=== PATIENT | female | born 1955 | race Caucasian/White ===

== ENCOUNTER 2021-02-03 07:10 | Day surgery (SDC) | payer MEDICARE, BC ==
--- OUTSIDE RECORDS SUMMARY | 2021-01-13 08:36 | XMSREPORT | Referral Summary ---
:1955 Author Organization [facility] and [facility] s Address [facility] [place] [address] Care Team Providers Name Role Phone Lanie Brito [facility] Primary Care Provider Lanie Brito [facility]IRE [facility] Attributed Provider Reason for Referral Transitions of Care (Routine) Status Reason Specialty Diagnoses / Referred By Referred To Procedures Contact Contact New Request Patient Diagnoses Screening for colon cancer Hallie Brito [facility], [facility], [address] [place] [place] [address] [address] [place], [place] Phone: [phone] Phone: Encounter Details Date Type Department Care Team Description 12/31/2020 Patient Message [facility] Hallie Brito [facility] [address] [place] [address] [place] [address] [phone] Allergies No Known Active Allergiesdocumented as of this encounter (statuses as of 01/01/2021) Medications Medication Sig Dispensed Refills Start Date End Date Status aspirin 81 MG tablet Take 81 mg by 0 Active mouth 1 time per day. vitamin D3, Take 2,000 Units 0 A ctive cholecalciferol, 2000 by mouth 1 time unit tablet per day. potassium gluconate Take 550 mg by 0 Active 550 MG TABS mouth 1 time per day. calcium Take 1 tablet by 0 Act jose rafael citrate-vitamin D mouth 2 times a (CITRACAL + VIT D) 315 day with meals mg-250 unit tablet mupirocin (BACTROBAN) Apply topically 3 15 g 0 10/03/2018 Active 2 % creamIndications: times a day Folliculitis cyanocobalamin Take 5,000 mcg by 0 Active (VITAMIN B-12) 1000 mouth 1 time per mcg tablet day clobetasol propionate Apply to affected 60 g 1 02/25/2020 Active (TEMOVATE) 0.05 % areas on leg two ointmentIndications: times a day for 2 Dermatitis weeks than every other day for 2 weeks. acetaminophen Take 2 tablets 60 tablet 0 03/26/2020 Active (TYLENOL) 500 mg (1,000 mg) by tabletIndications: S/P mouth 3 times a left knee arthroscopy day triamcinolone (KENALOG Place 1 5 g 3 04/12/2020 Active IN ORABASE) 0.1 % application into pasteIndications: mouth 2 times a Aphthous ulcer of day tongue Additional Information Patient taking differently: 1 application Mouth/Throat Two times a day prn, Reported on 12/03/2020 omeprazole (PRILOSEC) 20 mg TAKE 1 CAPSULE BY 90 capsule 4 Active capsuleIndications: MOUTH EVERY DAY Gastroesophageal reflux disease without esophagitis rosuvastatin (CRESTOR) 10 mg TAKE 1 TABLET BY 90 tablet 4 10/17 Active tabletIndications: MOUTH EVERY NIGHT AT Hypercholesterolemia BEDTIME escitalopram (LEXAPRO) 10 mg TAKE 1 TABLET BY 90 tablet 4 10/17 Active tabletIndications: Depression MOUTH EVERY DAY with anxiety hydroCHLOROthiazide 25 mg TAKE 1 TABLET BY 90 tablet 4 021 Active tabletIndications: Hypertension, MOUTH EVERY MORNING benign essential, goal below FOR HIGH BLOOD 140/90 PRESSURE lisinopril (PRINIVIL, ZESTRIL) TAKE 1 TABLET BY 90 tablet 4 Active 10 mg tabletIndications: MOUTH EVERY NIGHT AT Hypertension, benign essential, BEDTIME goal below 140/90 Calcium 200 MG TABS Take 1 tablet by 0 Active mouth 1 time per day at noon doxepin (SILENOR) 6 MG Take 1 tablet (6 mg) 30 tablet 1 2020 Active tabletIndications: Other by mouth at bedtime insomnia as needed for insomnia Probiotic Product (CULTURELLE Take 2 gummy by 0 Active IMMUNE DEFENSE) CHEW mouth 1 time per day naproxen (ALEVE) 220 mg tablet Take 440 mg by mouth 0 Active 2 times a day as needed for mild pain Hwkimozjlxg-Izjjdolqe-Kja C-Mn Take 2 capsules by 0 Active (GLUCOSAMINE-CHONDROITIN mouth 1 time per day COMPLEX) capsule diphenhydrAMINE (BENADRYL) 25 mg Take 25 mg by mouth 0 Active capsule at bedtime as needed for other (Specify) (allergies) Hospital, Clinic, or Other Ordered Dose Route Frequency Start Date End Date Status Facility Administered Medication lidocaine 1% injection 0.5 mL IA Now 05/18/2020 Active solution 0.5 mLIndications: Trigger finger, right ring finger, Trigger finger, right index finger documented as of this encounter (statuses as of 01/01/2021) Active Problems Problem Noted Date Generalized abdominal pain 11/15/2018 Overview: Associated with alternating constipation /diarrhea Xray with moderate constipation. Miralax cleanout regimen recommended. Atrophic vaginitis 09/13/2018 Overview: August 2018-trial replens. 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 Obesity (BMI 30-39.9) 07/27/2014 Insomnia 06/12/2013 Overview: S/e from Amitriptyline, trazodone. Minip ress ineffective. Nov 2020: trial doxepin. Last Assessment & Plan: -Uses trazodone as needed. Vitamin D deficiency 08/19/2009 Osteopenia 02/18/2007 Overview: Vitamin D and calcium supplements. 2013 Dexa: major osteoporotic fracture of 7.4%, for hip fracture 0.6%. Lumbar Tscore -1.6; Femoral neck Tscore -1.6. 2020: FRAX major fracture is 10% and hip fracture is 1.4%. Lumbar Tscore -2.0; Femoral neck Tscore -1.9. Esophageal reflux 02/13/2007 Overview: with a large hiatal hernia. upper GI in 2006. She underwent an EGD March of 2007. August 2018--trial off ppi, switch to h2 receptor gautam. Did not tolerate, restarted PPI. Last Assessment & Plan: -on omeprazole Hypertension, benign essential, goal below 140/90 03/19 Overview: Lisinopril and hctz daily. Last Assessment & Plan: -on medications and stable. Hypercholesterolemia Overview: Simvastatin 20 mg. 10 year ASCVD risk 2. 1%. September 2019: change simvastatin to crestor for better control. Last Assessment & Plan: -on statin Postmenopausal Overview: Hot flashes. documented as of this encounter (statuses as of 01/01/2021) Resolved Problems Problem Noted Date Resolved Date Rash 12/25/2017 03/10/2020 Essential hypertension 08/18/2016 07/27/2017 Hematoma 11/27/2009 07/27/2014 Pelvic pain in female 08/13/2009 07/27/2014 Carpal tunnel syndrome 04/14/2008 07/27/2014 Trigger finger, acquired 04/14/2008 07/27/2014 Acute esophagitis 04/10/2007 07/27/2014 documented as of this encounter (statuses as of 01/01/2021) Immunizations Name Administration Dates Next Due FLU VACCINE HIGH DOSE 65YR+(Fluzone) 12/09/2019 FLU VACCINE SINGLE DOSE 05/26/2019 0.5mL(6MO+Fluzone/Flulaval/Fluarix,3YR+Afluria) INFLUENZA HIGH DOSE (FLUZONE) 65 YEARS AND UP 12/03/2020 Moderna COVID-19 Vaccine 06/09/2020, 05/12/2020 Pfizer COVID-19 Vaccine 12/03/2020 Pneumococcal Polysaccharide PPSV23 01/13/2020 TDAP 10/17/2019, 08/27/2009 Tetanus Toxoid,not adsorbed 03/19/1999 Zoster Live(Zostavax) 02/09/2015, 03/19/1999 Zoster Recombinant (Shingrix) 03/13/2018, 10/05/2017 documented as of this encounter Social History Tobacco Use Types Packs/Day Years Used Date Never Smoker Smokeless Tobacco: Never Used Alcohol Use Standard Drinks/Week Comments Yes 0 (1 standard drink = 0.6 oz pure alcoho l) Socially, 0-1 per week Alcohol Habits Answer Date Recorded How often do you have a drink containing Not asked alcohol? How many drinks containing alcohol do you have Not asked on a typical day when you are drinking? How often do you have six or more drinks on Not asked one occasion? Comment: Socially, 0-1 per week 08/23/2017 Sex Assigned at Date Recorded Not on file documented as of this encounter Functional Status Functional Status Response Date of Assessment Is the person deaf or does he/she have serious difficulty No 01/18/2018 hearing? Is this person blind or does he/she have difficulty No 01/18/2018 seeing even when wearing glasses? Do you have difficulty with walking, balance, climbing No 12/03/2020 stairs, or had a fall in the last 3 months? documented as of this encounter Miscellaneous Notes Telephone Encounter - Elsy Alvarez LPN - 12/31/2020 4:37 PM CDT From: Tamara Fletcher To: Hallie Brito APRN-STRING STUDIES DIRECTOR Sent: 12/30/2020 8:43 AM CDT Subject: Colonscopy Good morning, I just called and checked on my colonscopy and was told they have over 1999 to schedule in [place]. Could you do a referral to [facility] in [place]? I can do it here and I am guessing might get in earlier. Please advise. Tamara Miranda documented in this encounter Plan of Treatment Date Type Specialty Care Team Description 08/24/2021 Office Visit Dermatology Isidro Perez MD [address] [place] [address] [phone] 12/08/2021 Office Visit Breast Specialty Naren Hurt , [facility]TER[facility]CN[facility] [address] [place] [address] [phone] 12/08/2021 Office Visit Internal Medicine Hallie Brito ae, [employer] C[employer]UD[employer] DIRECT[employer] [address] [place] [address] [phone] Name Type Priority Associated Diagnoses Order [facility] CLINIC REFERRAL Referral Routine Screening for colon Order ed: 01/01/2021 ENDOSCOPY NON ONE CHART cancer documented as of this encounter Goals Goal Patient Goal Associated Recent Patient-Stated? Author Type Problems Progress Blood Pressure Blood Pressure 132/68 No Dion, < 140/90 (12/03/2020 Sona Chester, 1:45 PM CDT) RN documented as of this encounter Visit Diagnoses Diagnosis Screening for colon cancer - Primary Special screening for malignant neoplasm s, colon documented in this encounter
[~2021-02-03 07:10] MED LIST: Lactated Ringers 1,000 ML IV SCH; Sodium Chloride 0.9% 10 ML Syringe FLUSH PRN
[2021-02-03] MEDS ORDERED: Propofol 200 MG/20 ML SDV ONE ×2 (08:23→09:47)
[2021-02-03] MEDS ORDERED: fentaNYL 100 MCG/2 ML SDV ONE (08:23)
--- NOTE | 2021-02-03 11:30 | OR ---
PREOPERATIVE DIAGNOSIS: Screening colonoscopy. The patient's last one was normal about 10 years ago. She does have history of constipation. She denies any family history of colon cancer. POSTOPERATIVE DIAGNOSES: 1. 4 mm polyp at 90 cm, removed using several bites of the cold forceps. 2. Mildly tortuous colon. PROCEDURE: Colonoscopy with polypectomy x1 using cold forceps. SURGEON: Atul Valdez M.D. ANESTHESIA: Monitored anesthesia care. BOWEL PREP: Fair to good. DESCRIPTION OF PROCEDURE: Tamara is a 65-year-old female who was brought to the endoscopy suite after discussing risks and benefits of the procedure. Informed consent was obtained for conscious sedation and colonoscopy with or without biopsy and/or polypectomy. We also discussed possibility of missed lesions. Pre-procedure exam was unremarkable. IV, oxygen, and monitors were placed. The patient was placed in the left lateral decubitus position. Sedation was administered and a digital rectal exam was performed and unremarkable. Colonoscope was passed into the rectum and slowly advanced all the way to the cecum. Cecum was viewed and photographed. The colonoscope was slowly withdrawn and the mucosa was closed observed in a direct circumferential manner. The ascending colon was remarkable for 4 mm polyp at 90 cm, removed using several bites of the cold forceps. Transverse colon unremarkable. Descending colon unremarkable. Sigmoid colon unremarkable. Retroflexion was performed. Rectal mucosa unremarkable. Scope was removed. The patient tolerated the procedure well. The patient was monitored until that baseline status. Discharge instructions were reviewed and the patient was discharged in good condition. COMPLICATIONS: None. TOTAL TIME: 28 minutes. ESTIMATED BLOOD LOSS: About 1 mL. RECOMMENDATIONS/FOLLOWUP: We will await results of path report to determine ideal followup interval. I will have the patient hold her aspirin for 3 days to limit any chance of bleeding from polypectomy site. I would like to kindly thank Hallie Brito for this referral. DMB: 02/03/2021 10:10:04 MODL: 02/03/2021 11:01:30 /[id number]
== END 2021-02-03 12:20 | disposition home or self-care (01) ==
LOC: VM.SDS 07:10
PROVIDERS: ATTEND Family Medicine
DX: Z12.11 Encounter for screening for malignant neoplasm of colon (principal); D12.2 Benign neoplasm of ascending colon; I10 Essential (primary) hypertension; E55.9 Vitamin D deficiency, unspecified; K21.9 Gastro-esophageal reflux disease without esophagitis; G47.00 Insomnia, unspecified; E78.00 Pure hypercholesterolemia, unspecified; F41.8 Other specified anxiety disorders; M85.80 Other specified disorders of bone density and structure, unspecified site; Z98.890 Other specified postprocedural states; Z79.899 Other long term (current) drug therapy; Z79.82 Long term (current) use of aspirin
CPT/HCPCS: 00812; 88305; J2704; J3010; J7120

== ENCOUNTER 2023-03-23 19:59 | Emergency (ER) | payer MEDICARE ==
[2023-03-23] MEDS ORDERED: Sodium Chloride 0.9% 10 ML Syringe FLUSH PRN (20:07)
[2023-03-23] MEDS ORDERED: Aspirin 81 MG Tab.Chew PO ONE (20:08)
[2023-03-23 20:37] LABS: BASOPHILS PERCENT AUTO 0.6 % (0.2-1.2); EOSINOPHILS ABSOLUTE AUTO 0.2 x10^3/uL (0.0-0.5); EOSINOPHILS PERCENT AUTO 3.4 % (0.0-4.0); HEMATOCRIT 38.1 % (33.0-47.0); HEMOGLOBIN 12.6 g/dL (12.0-16.0); IMMATURE GRAN ABSOLUTE AUTO 0.02 x10^3/uL (0.00-0.07); LYMPHOCYTES ABSOLUTE AUTO 2.3 x10^3/uL (1.0-4.8); LYMPHOCYTES PERCENT AUTO 35.6 % (25.0-50.0); MEAN CORPUSCULAR HEMOGLOBIN 28.3 pg (26.0-32.0); MEAN CORPUSCULAR HGB CONC 33.1 g/dL (32.0-36.0); MEAN CORPUSCULAR VOLUME 85.6 fL (78.0-93.0); MONOCYTES ABSOLUTE AUTO 0.4 x10^3/uL (0.0-0.8); NEUTROPHILS ABSOLUTE AUTO 3.5 x10^3/uL (1.8-7.7); NEUTROPHILS PERCENT AUTO 54.1 % (50.0-80.0); PLATELET COUNT,PLT 334 x10^3/uL (130-400); RED BLOOD CELL COUNT 4.45 x10^6/uL (4.00-5.50); WHITE BLOOD CELL COUNT,WBC 6.4 x10^3/uL (4.0-10.0)
[2023-03-23 21:01] LABS: LACTIC ACID 0.9 mmol/L (0.4-2.0)
[2023-03-23 21:05] LABS: INR 0.9 (0.9-1.1); PROTHROMBIN TIME 10.2 SEC (9.5-12.2); PTT,PARTIAL THROMBOPLSTIN TIME 24.3 SEC (23.6-33.6)
[2023-03-23 21:06] LABS: A/G RATIO 0.87; ALANINE AMINOTRANSFERASE,ALT 33 U/L (14-59); ALBUMIN 3.4 g/dL (3.4-5.0); ALKALINE PHOSPHATASE 92 U/L (46-116); ASPARTATE AMNIOTRANSFERASE,AST 35 U/L (15-37); BILIRUBIN TOTAL 0.2 mg/dL (0.2-1.0); BLOOD UREA NITROGEN,BUN 14 mg/dL (7-18); C-REACTIVE PROTEIN 0.82 mg/dL (<=0.50); CALCIUM 8.8 mg/dL (8.5-10.1); CARBON DIOXIDE,CO2 29 mmol/L (21-32); CHLORIDE,CL 102 mmol/L (98-107); CREATININE 0.9 mg/dL (0.55-1.02); GLUCOSE RANDOM 135 mg/dL (70-99); MAGNESIUM 1.9 mg/dL (1.8-2.4); POTASSIUM,K 3.3 mmol/L (3.5-5.1); PRO B-TYPE NATRIUR PEPT,BNPPRO 62 pg/mL (<=125); PROTEIN TOTAL,TP 7.3 g/dL (6.4-8.2); SODIUM,NA 141 mmol/L (136-145)
[2023-03-23 21:08] LABS: ANION GAP 13.3 mmol/L (5-15); ESTIMATED GFR 70 mL/min (>=60)
[2023-03-23 21:22] LABS: CORONAVIRUS COVID-19 NAA NEGATIVE (NEGATIVE); INFLUENZA A NAA NEGATIVE (NEGATIVE); INFLUENZA B NAA NEGATIVE (NEGATIVE); RESPIRATORY SYNCYTIAL VIR NAA NEGATIVE (NEGATIVE)
[2023-03-23] MEDS ORDERED: Ketorolac 15 MG/ML SDV IVPUSH ONE (21:36)
[2023-03-23] MEDS ORDERED: methylPREDNISolone Sodium Succinate 125 MG/2 ML SDV IV ONE (21:36)
== END 2023-03-23 22:10 | disposition home or self-care (01) ==
LOC: VM.ED 19:59
DX: R07.89 Other chest pain (principal); E66.9 Obesity, unspecified; I10 Essential (primary) hypertension; E78.00 Pure hypercholesterolemia, unspecified; K21.9 Gastro-esophageal reflux disease without esophagitis; M19.90 Unspecified osteoarthritis, unspecified site; Z79.82 Long term (current) use of aspirin; Z79.899 Other long term (current) drug therapy
CPT/HCPCS: 0241U; 71045; 80053; 83605; 83735; 83880; 84484; 85025; 85379; 85610; 85730; 86140; 93005; 96374; 96375; 99285-25; A9270-GY; J1885; J2930